=== PATIENT | male | born 1965 ===

== ENCOUNTER 2021-11-14 17:12 | Inpatient (IN) | payer MEDICAID ==
[2021-11-14] MEDS ORDERED: MAGNESIUM HYDROXIDE 2,400 MG/10 ML CUP PO PRN (18:32)
[2021-11-14] MEDS ORDERED: OLANZapine 10 MG VIAL IM PRN (18:44)
[2021-11-14] MEDS ORDERED: hydrOXYzine HCL 50 MG/ML 1 ML VIAL IM PRN (18:44)
[2021-11-14] MEDS ORDERED: OLANZapine 5 MG TAB PO PRN (18:44)
[2021-11-14] MEDS ORDERED: QUEtiapine 400 MG TAB PO SCH (21:00)
[2021-11-14] MEDS ORDERED: traZODone HCL 50 MG TAB PO SCH (21:00)
[2021-11-14] MEDS: ACETAMINOPHEN TAB 325 MG TAB PO PRN (21:17)
[2021-11-14] MEDS: busPIRone HCl 5 MG TAB PO SCH (21:52)
--- NOTE | 2021-11-15 04:24 | P.MDCNMH ---
History of Present Illness H&P Date: 11/14/21 Chief Complaint: Medical evaluation 56-year-old male with CK D, GERD, hypertension Patient comes in with depressed emotions and suicidal ideation. He feels down especially with the news of his cousin who recently shocked himself patient started getting negative thoughts. He otherwise denies any medical concerns at this time denies any fevers chills chest pain trouble breathing coughing upper respiratory infection symptoms denies nausea vomiting abdominal pain changes in bowels urinary habits denies any GI bleeding denies any focal neuro deficits Patient admits to tobacco smoking, admits to cocaine abuse last time he uses it was 3-4 days ago. Denies any alcohol Review of Systems Pertinent positives as noted in HPI. All other systems were reviewed and are negative Past Medical History Past Medical History: Hypertension History of Any Multi-Drug Resistant Organisms: None Reported Past Surgical History: No Surgical Hx Reported Past Anesthesia/Blood Transfusion Reactions: No Reported Reaction Past Psychological History: No Psychological Hx Reported Smoking Status: Current every day smoker Past Alcohol Use History: None Reported Past Drug Use History: None Reported - Past Family History Family Family Medical History: Coronary Artery Disease (CAD) Additional Family Medical History / Comment(s): Suicide Medications and Allergies Allergies Allergy/AdvReac Type Severity Reaction Status Date / Time No Known Allergies Allergy Verified 11/14/21 18:29 Physical Exam Vitals: Vital Signs Temp Pulse Resp BP Pulse Ox 11/14/21 22:17 97.9 F 66 18 109/66 97 Intake and Output 11/14/21 11/14/21 11/15/21 14:59 22:59 06:59 Other: Weight 79 kg Constitutional: No acute distress, conversant, depressed affect Eyes: Anicteric sclerae, moist conjunctiva, Pupils equal round reactive to light ENMT: NC/AT Oropharynx clear, no erythema, or exudates Neck: Supple, FROM, no masses, or JVD No carotid bruits No thyromegaly Lungs: Clear to auscultation Clear to percussion Normal respiratory effort, no accessory muscle use Cardiovascular: Heart regular in rate and rhythm, No murmurs, gallops, or rubs No peripheral edema Abdominal: Soft Nontender, no guarding, rebound or rigidity Abdomen moving with respiration Normoactive bowel sounds No hepatomegaly, No splenomegaly No palpable mass No abdominal wall hernia noted Skin: Normal temperature, tone, texture, turgor No induration No subcutaneous nodules No rash, lesions No ulcers Extremities: No digital cyanosis No clubbing Pedal pulses intact and symmetrical Radial pulses intact and symmetrical No calf tenderness Psychiatric: Alert and oriented to person, place and time Neuro Muscles Strength 5/5 in all 4 extremities Sensation to light touch grossly present throughout Cranial nerves II-XII grossly intact No focal sensory deficits Lymphatics: no palpable cervical or supraclavicular , or inguinal lymph nodes Cranial Nerve Examination - Cranial Nerves Cranial Nerve II- Optic: Intact Cranial Nerve III- Oculomotor: Intact Cranial Nerve IV- Trochlear: Intact Cranial Nerve V- Trigeminal: Intact Cranial Nerve - Abducens: Intact Cranial Nerve VII- Facial: Intact Cranial Nerve VIII- Auditory: Intact Cranial Nerve IX- Glossopharyngeal: Intact Cranial Nerve X- Vagus: Intact Cranial Nerve XI- Accessory: Intact Cranial Nerve XII- Hypoglossal: Intact Assessment and Plan Assessment: Suicidal ideation and depression Bipolar disorder Anxiety Management per psych Chronic conditions CK D follow-up blood work, avoid nephrotoxic meds Hypertension, not currently on medications, blood pressure controlled GERD, continue with PPI Polysubstance abuse Patient counseled to quit tobacco smoking and cocaine abuse Follow-up labs DVT prophylaxis patient ambulatory Thank you for allowing us to participate in the care of this patient. We will follow peripherally. Do not hesitate to contact us with questions. Someone can be reached from the [facility] hospitalist group at all hours of the day at [phone].
[2021-11-15] MEDS: busPIRone HCl 5 MG TAB PO SCH (08:29)
[2021-11-15] MEDS: NICOTINE 14MG/24HR PATCH TRANSDERM SCH (08:29)
[2021-11-15] MEDS: PANTOPRAZOLE 40 MG TABLET PO SCH (08:29)
[2021-11-15] MEDS ORDERED: QUEtiapine 50 MG TAB PO SCH (09:00)
[2021-11-15 10:24] LABS: Basophils # (A) 0.1 k/uL (0-0.2); Basophils % (A) 1 %; Eosinophils # (A) 0.2 k/uL (0-0.7); Eosinophils % (A) 3 %; HGB 13.8 gm/dL (13.0-17.5); Lymphocytes # (A) 1.5 k/uL (1.0-4.8); Lymphocytes % (A) 24 %; MCH 30.2 pg (25.0-35.0); MCHC 32.8 g/dL (31.0-37.0); MCV 92.1 fL (80.0-100.0); Mean Platelet Volume 6.5; Monocytes # (A) 0.4 k/uL (0-1.0); Monocytes % (A) 7 %; Neutrophils # (A) 3.7 k/uL (1.3-7.7); Neutrophils % (A) 62 %; Platelet Count 330 k/uL (150-450); RBC 4.56 m/uL (4.30-5.90); RDW 13.6 % (11.5-15.5)
[2021-11-15 10:39] LABS: ALT 23 U/L (4-49); AST 25 U/L (17-59); African American GFR (CKD) 77 (>60 ml/min/1.73 sqM); Albumin 4.2 g/dL (3.5-5.0); Alkaline Phosphatase 69 U/L (38-126); Anion Gap 12 mmol/L; Bilirubin, Delta 0.1 mg/dL (0.0-0.2); Bilirubin,Unconjugated 0.1 mg/dL (0.0-1.1); Blood Urea Nitrogen 10 mg/dL (9-20); Calcium 9.6 mg/dL (8.4-10.2); Carbon Dioxide 23 mmol/L (22-30); Chloride 103 mmol/L (98-107); Glucose 100 mg/dL (74-99); Non-African American GFR(CKD) 67 (>60 ml/min/1.73 sqM); Potassium 4.5 mmol/L (3.5-5.1); Sodium 138 mmol/L (137-145); Total Bilirubin 0.2 mg/dL (0.2-1.3); Total Protein 6.7 g/dL (6.3-8.2)
[2021-11-15] MEDS: ACETAMINOPHEN TAB 325 MG TAB PO PRN ×2 (11:29→20:52)
[2021-11-15] MEDS: hydrOXYzine pamoate 25 MG CAP PO PRN (11:29)
[2021-11-15] MEDS: SERTRALINE 50 MG TAB PO SCH (11:29)
[2021-11-15] MEDS ORDERED: DICLOFENAC SODIUM GEL 100 GM TUBE TOPICAL PRN (11:30)
[2021-11-15] MEDS ORDERED: ALBUTEROL INHALER 60 PUFF/8 GM INHALER (MHU) INHALATION PRN (11:30)
[2021-11-15] MEDS ORDERED: PANTOPRAZOLE 40 MG TABLET PO SCH (11:45)
[2021-11-15] MEDS ORDERED: LORazepam 2 MG/ML INJ IM PRN (11:45)
[2021-11-15] MEDS ORDERED: haloperidoL 5 MG TAB PO PRN (11:45)
[2021-11-15] MEDS ORDERED: HALOPERIDOL LACTATE 5 MG/ML 1 ML VIAL IM PRN (11:45)
--- NOTE | 2021-11-15 11:46 | P.HP ---
Psychiatric H&P - . H&P Date: 11/15/21 History & Physical: Allergies Allergy/AdvReac Type Severity Reaction Status Date / Time No Known Allergies Allergy Verified 11/14/21 18:29 Vital Signs Temp 98.9 F 11/15/21 06:51 Pulse 65 11/15/21 06:51 Resp 18 11/15/21 06:51 BP 110/62 11/15/21 06:51 Pulse Ox 95 11/15/21 06:51 FiO2 Intake & Output 11/14/21 11/15/21 11/15/21 18:59 06:59 18:59 Weight 77.27 kg 79 kg Laboratory Last Values WBC 6.0 k/uL (3.8-10.6) 11/15/21 09:35 RBC 4.56 m/uL (4.30-5.90) 11/15/21 09:35 Hgb 13.8 gm/dL (13.0-17.5) 11/15/21 09:35 Hct 42.0 % (39.0-53.0) 11/15/21 09:35 MCV 92.1 fL (80.0-100.0) 11/15/21 09:35 MCH 30.2 pg (25.0-35.0) 11/15/21 09:35 MCHC 32.8 g/dL (31.0-37.0) 11/15/21 09:35 RDW 13.6 % (11.5-15.5) 11/15/21 09:35 Plt Count 330 k/uL (150-450) 11/15/21 09:35 MPV 6.5 11/15/21 09:35 Neutrophils % 62 % 11/15/21 09:35 Lymphocytes % 24 % 11/15/21 09:35 Monocytes % 7 % 11/15/21 09:35 Eosinophils % 3 % 11/15/21 09:35 Basophils % 1 % 11/15/21 09:35 Neutrophils # 3.7 k/uL (1.3-7.7) 11/15/21 09:35 Lymphocytes # 1.5 k/uL (1.0-4.8) 11/15/21 09:35 Monocytes # 0.4 k/uL (0-1.0) 11/15/21 09:35 Eosinophils # 0.2 k/uL (0-0.7) 11/15/21 09:35 Basophils # 0.1 k/uL (0-0.2) 11/15/21 09:35 Sodium 138 mmol/L (137-145) 11/15/21 09:35 Potassium 4.5 mmol/L (3.5-5.1) 11/15/21 09:35 Chloride 103 mmol/L (98-107) 11/15/21 09:35 Carbon Dioxide 23 mmol/L (22-30) 11/15/21 09:35 Anion Gap 12 mmol/L 11/15/21 09:35 BUN 10 mg/dL (9-20) 11/15/21 09:35 Creatinine 1.23 mg/dL (0.66-1.25) 11/15/21 09:35 Est GFR (CKD-EPI)AfAm 77 (>60 ml/min/1.73 sqM) 11/15/21 09:35 Est GFR (CKD-EPI)NonAf 67 (>60 ml/min/1.73 sqM) 11/15/21 09:35 Glucose 100 mg/dL (74-99) H 11/15/21 09:35 Calcium 9.6 mg/dL (8.4-10.2) 11/15/21 09:35 Total Bilirubin 0.2 mg/dL (0.2-1.3) 11/15/21 09:35 Conjugated Bilirubin 0.0 mg/dL (0.0-0.3) 11/15/21 09:35 Unconjugated Bilirubin 0.1 mg/dL (0.0-1.1) 11/15/21 09:35 Delta Bilirubin 0.1 mg/dL (0.0-0.2) 11/15/21 09:35 AST 25 U/L (17-59) 11/15/21 09:35 ALT 23 U/L (4-49) 11/15/21 09:35 Alkaline Phosphatase 69 U/L (38-126) 11/15/21 09:35 Total Protein 6.7 g/dL (6.3-8.2) 11/15/21 09:35 Albumin 4.2 g/dL (3.5-5.0) 11/15/21 09:35 TSH 0.483 mIU/L (0.465-4.680) 11/15/21 09:35 11/15/21 11:37 IDENTIFYING DATA: Patient is a 56-year-old -Cypriot male who is currently homeless living in different shelters or staying with friends, has 1, currently unemployed HPI: Patient presented to the hospital as a transfer from [facility]. According to EPS report patient was suicidal and having auditory hallucinations commanding him to harm himself. Patient apparently had endorsed wanting to use a gun to harm himself. EPS reported also that patient had been off his medications for about 3 weeks. Apparently patient's urine drug screen was positive for cocaine and THC. Patient was seen today and agreeable to speak to telegraphic typewriter repairer in the office. Patient appeared to have poor eye contact and appeared be disheveled in appearance. Soft tone of voice. He states that his daughter preston pped him off at the other hospital and states that he was having suicidal thoughts. He claims that his cousin recently killed herself which has been causing stress for him. He claims that he is dealing with other multiple stressors in his life including not getting paid for a job and really more financial issues. He claims that he is also been dealing with family and relationship issues which she was fairly vague about. He claims a feeling depressed for about 2 weeks now. He states that he is also having high levels of anxiety. He claims that his sleep and appetite are poor. States that he does have nightmares every night. He claims that he ran out of his medications. He does claim that he has been using cocaine approximately $100 for the past month and also smokes marijuana almost daily and also cigarettes as well. Denies any other recreational drugs. He claims that he is still having suicidal thoughts however no intent or plan. He claims that he is also still hearing voices at times during the day which started on Thursday. Patient denies any homicidal ideations intent or plan. At this time patient denies any visual hallucinations. Patient denies any flight of ideas racing thoughts and increased in goal directed behavior. PAST PSYCHIATRIC HISTORY: Patient states that he has a history of PTSD and "bipolar disorder". He was previously on Seroquel, BuSpar in the past. He claims that he has had multiple psychiatric hospitalizations in the past, last admission was at [facility] in March. He claims that he does follow up with a psychiatrist at [facility] in [place]. He claims that he once overdosed in 2008. PMH: Hypertension ALLERGIES: as per EMR CHEMICAL DEPENDENCY HISTORY: as per HPI FAMILY PSYCHIATRIC/SUBSTANCE USE HISTORY: denies SOCIAL HISTORY: Patient was born and raised in [place]. He states that he completed high school. 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 He is currently unemployed. He claims that he did go to jail several years ago for drug-related charges. He claims that he is now homeless and lives in different shelters or staying with different friends. He claims that he has 1 daughter. MENTAL STATUS EXAM: General Appearance: Patient appears to be older than stated age is alert, poor eye contact, vague. Patient appears to have poor hygiene and grooming. Behavior: Patient is seated without any agitated behavior. Vague. Speech: Patient's speech is fluent and nonpressured. Mumbling, soft tone. Mood/Affect: Patient reports their mood is depressed and anxious, affect is congruent and constricted. Suicidality/Homicidality: Patient denies having any homicidal ideation intent or plan. Admits to current suicidal thoughts, no intent or plan. Perceptions: Patient denies any visual hallucinations and admits to auditory hallucinations since Thursday. Though content/process: There is no evidence of any delusional thought content and thought process is linear and goal-directed. Rambles at times. Memory and concentration: AOX3, grossly intact for the purposes of this session. Can spell "WORLD" backwards Judgment and insight: poor STRENGTHS/WEAKNESSES: strength is that patient is resilient. Weakness is that patient has poor judgment and is impulsive INTELLECT: average IMPRESSIONS: Major depressive disorder, with psychotic features PTSD Cocaine use disorder Cannabis use disorder mild Nicotine dependence PLAN: -Patient is admitted under voluntary status to [facility]HU for stabilization of psychiatric symptoms and safety. Patient has signed adult voluntary form and medication consent and is placed in patient's chart. -Medications : Will start patient on Zyprexa 7.5 mg daily at bedtime for mood stabilization/psychosis, this can be increased over the weekend if needed. Zoloft 50 mg daily for mood/anxiety. BuSpar 15 mg daily for anxiety. Trazodone daily at bedtime when necessary for sleep. -Ativan and Haldol PRN for agitation/aggression -Patient was counselled on substance abuse and desired to cut back on use -Patient was informed of the risks, benefits and side effects of the medication and patient verbally consented to taking the medications. Patient signed med consent form and was placed in chart. -Internal Medicine consult to perform medical evaluation and physical. -NRT - nicotine patch -SW on board for discharge planning. Encourage patient to participate in groups to work on coping skills. will attempt to offer patient rehab.
[2021-11-15] MEDS: FOLIC ACID 1 MG TAB PO SCH (11:49)
[2021-11-15] MEDS: lisinopriL 20 MG TAB PO SCH (11:49)
[2021-11-15 15:13] LABS: Chol/HDL Ratio 3.08 Ratio; LDL Cholesterol,Calculated 63.4 mg/dL (0.0-131.0)
[2021-11-15] MEDS: PRAZOSIN 1 MG CAP PO SCH (20:52)
[2021-11-15] MEDS ORDERED: OLANZapine 2.5 MG TAB PO SCH (21:00)
[2021-11-16] MEDS: lisinopriL 20 MG TAB PO SCH (08:09)
[2021-11-16] MEDS: NICOTINE 14MG/24HR PATCH TRANSDERM SCH (08:09)
[2021-11-16] MEDS: SERTRALINE 50 MG TAB PO SCH (08:09)
[2021-11-16] MEDS: FOLIC ACID 1 MG TAB PO SCH (08:09)
[2021-11-16] MEDS: busPIRone HCl 5 MG TAB PO SCH (08:09)
[2021-11-16] MEDS: PANTOPRAZOLE 40 MG TABLET PO SCH (08:09)
[2021-11-16] MEDS: ACETAMINOPHEN TAB 325 MG TAB PO PRN ×2 (08:10→12:47)
[2021-11-16] MEDS: hydrOXYzine pamoate 25 MG CAP PO PRN ×2 (12:46→20:09)
[2021-11-16] MEDS: IBUPROFEN 200 MG TAB PO PRN (17:46)
[2021-11-16] MEDS: PRAZOSIN 1 MG CAP PO SCH (20:08)
[2021-11-16] MEDS: OLANZapine 7.5 MG TAB PO SCH (20:08)
[2021-11-17] MEDS: PANTOPRAZOLE 40 MG TABLET PO SCH (08:36)
[2021-11-17] MEDS: SERTRALINE 50 MG TAB PO SCH (08:36)
[2021-11-17] MEDS: lisinopriL 20 MG TAB PO SCH (08:36)
[2021-11-17] MEDS: FOLIC ACID 1 MG TAB PO SCH (08:36)
[2021-11-17] MEDS: busPIRone HCl 5 MG TAB PO SCH (08:36)
[2021-11-17] MEDS: MAG HYDROX/AL HYDROX/SIMETH 30 ML CUP PO PRN ×2 (08:38→16:54)
[2021-11-17] MEDS: ACETAMINOPHEN TAB 325 MG TAB PO PRN (08:38)
--- NOTE | 2021-11-17 12:02 | P.PN ---
Subjective Progress Note Date: 11/16/21 Principal diagnosis: Major depressive disorder, with psychotic features PTSD Cocaine use disorder Cannabis use disorder mild Nicotine dependence -Patient is admitted under voluntary status to MHU for stabilization of psychiatric symptoms and safety. Patient has signed adult voluntary form and medication consent and is placed in patient's chart. -Medications : Started patient on Zyprexa 7.5 mg daily at bedtime for mood stabilization/psychosis, this can be increased over the weekend if needed. Zoloft 50 mg daily for mood/anxiety. BuSpar 15 mg daily for anxiety. Trazodone daily at bedtime when necessary for sleep. -Ativan and Haldol PRN for agitation/aggression -Subjective: He is tolerating medications well but was on 600mg of seroquel at home and did not sleep well on the zyprexa 7.5 Objective: He does look sleepy, is vague, denies suicidal urges, is cooperative, poor eye contact, no clear psychotic responses. Assessment: needs and wants an increase in meds so will increase zyprexa to 15 mg./plan Objective - Vital Signs Vital signs: Vital Signs Temp 97.8 F 11/16/21 06:05 Pulse 69 11/16/21 08:12 Resp 16 11/16/21 06:05 BP 119/78 11/16/21 08:12 Pulse Ox 97 11/16/21 06:05 FiO2 - Labs CBC & Chem 7: 11/15/21 09:35 11/15/21 09:35 Labs: Abnormal Lab Results - Last 24 Hours (Table) 11/15/21 11/15/21 Range/Units 09:35 09:35 Hemoglobin A1c 6.1 H (0.0-6.0) % Triglycerides 166.00 H (0.00-149.00) mg/dL
--- NOTE | 2021-11-17 12:06 | P.PN ---
Subjective Progress Note Date: 11/17/21 Principal diagnosis: Major depressive disorder, with psychotic features PTSD Cocaine use disorder Cannabis use disorder mild Nicotine dependence -Patient is admitted under voluntary status to MHU for stabilization of psychiatric symptoms and safety. -Medications : We increased the Zyprexa to 15 last night and he says he slept better. Zoloft 50 mg daily for mood/anxiety. BuSpar 15 mg daily for anxiety. He says he was taking it twice a day but there was some concern about his kidneys and he can't remember 2 in the evening anyhow. Trazodone daily at bedtime when necessary for sleep. He says he slept well last night. -Ativan and Haldol PRN for agitation/aggression -Subjective: He is tolerating medications well but was on 600mg of seroquel at home and did not sleep well on the zyprexa 7.5 Objective: He does look more alert after a good night sleep, is vague, denies suicidal urges, is cooperative but when I asked him to come and talk to me he had to do to other chores first before he could come, poor improved. Assessment: Increase in Zyprexa helped but he said that he still has breakthrough of nightmares and that when he was at home he took 3 mg of prazosin and wanted to know if that could be increased Plan increase prazosin to 3 mg continue other medications Objective - Vital Signs Vital signs: Vital Signs Temp 97.8 F 11/16/21 06:05 Pulse 69 11/16/21 08:12 Resp 16 11/16/21 06:05 BP 119/78 11/16/21 08:12 Pulse Ox 97 11/16/21 06:05 FiO2 - Labs CBC & Chem 7: 11/15/21 09:35 11/15/21 09:35
[2021-11-17] MEDS: hydrOXYzine pamoate 25 MG CAP PO PRN (16:49)
[2021-11-17] MEDS: IBUPROFEN 200 MG TAB PO PRN (16:51)
[2021-11-17] MEDS: PRAZOSIN 1 MG CAP PO SCH (20:36)
[2021-11-17] MEDS: OLANZapine 7.5 MG TAB PO SCH (20:36)
[2021-11-18] MEDS: IBUPROFEN 200 MG TAB PO PRN ×3 (07:45→20:33)
[2021-11-18] MEDS: busPIRone HCl 5 MG TAB PO SCH (07:46)
[2021-11-18] MEDS: lisinopriL 20 MG TAB PO SCH (07:46)
[2021-11-18] MEDS: FOLIC ACID 1 MG TAB PO SCH (07:46)
[2021-11-18] MEDS: PANTOPRAZOLE 40 MG TABLET PO SCH ×2 (07:46→17:43)
[2021-11-18] MEDS: SERTRALINE 50 MG TAB PO SCH (07:47)
[2021-11-18] MEDS: MULTIVITAMINS, THERA 1 EACH TAB PO SCH (09:28)
[2021-11-18] MEDS: CALCIUM CARBONATE 500 MG CHEWABLE PO PRN ×2 (09:40→17:43)
[2021-11-18] MEDS ORDERED: SERTRALINE 50 MG TAB PO STA (10:24)
--- NOTE | 2021-11-18 10:31 | P.PN ---
Progress Note - Text Progress Note Date: 11/18/21 Interval History: Patient was seen wandering the hallways and was directable and agreeable to efraín marlow with technical document writer in the office. Patient was seen in group earlier today. He states that he is still feeling fairly depressed and "very anxious". He claims he has been feeling this way throughout the weekend and states that the Zyprexa has not been helping him enough. He claims that he is still hearing voices as well telling him to harm himself. He was complaining of some poor sleep and states that he wants to take the trazodone tonight. He states that he is also having acid reflux and is agreeable to have his Protonix increased. He claims that he is going to some groups. At this time patient denies any suicidal or homical ideations, intent or plan. Patient denies any visual hallucinations and denies any paranoia or delusions. Patient denies any side effects from the medications and has been compliant with meds. Mental Status Exam: General Appearance: Patient appears to be older than stated age is alert, fair eye contact, vague. Patient appears to have poor hygiene and grooming. Behavior: Patient is seated without any agitated behavior. Vague. Speech: Patient's speech is fluent and nonpressured. soft tone. Mood/Affect: Patient reports their mood is depressed and anxious, affect is congruent and constricted. Suicidality/Homicidality: Patient denies having any homicidal ideation intent or plan. denies any suicidal thoughts, no intent or plan. Perceptions: Patient denies any visual hallucinations and admits to auditory hallucinations Though content/process: There is no evidence of any delusional thought content and thought process is linear and goal-directed. Rambles at times. focused on his meds and sx. Memory and concentration: AOX3, grossly intact for the purposes of this session Judgment and insight: poor, improving midlly IMPRESSIONS: Major depressive disorder, with psychotic features PTSD Cocaine use disorder Cannabis use disorder mild Nicotine dependence Plan: -Patient continues to meet criteria for inpatient psychiatric admission for symptom stabilization and safety. Patient has signed adult voluntary form and medication consent and was placed in patient's chart. -Medications: increase Zyprexa 15 mg daily at bedtime + 5 daily for mood stab ilization/psychosis. increase Zoloft 100 mg daily for mood/anxiety. BuSpar 15 mg daily for anxiety. Trazodone daily at bedtime when necessary for sleep. -When necessary Ativan and Haldol for agitation/aggression. -NRT - nicotine patch -SW on board for discharge planning. Encouraged the patient to participate in milieu. will attempt to offer patient rehab.
[2021-11-18] MEDS: OLANZapine 5 MG TAB PO SCH (10:43)
[2021-11-18] MEDS: hydrOXYzine pamoate 25 MG CAP PO PRN (10:45)
[2021-11-18] MEDS: ACETAMINOPHEN TAB 325 MG TAB PO PRN (17:44)
[2021-11-18] MEDS: traZODone HCL 100 MG TAB PO PRN (20:33)
[2021-11-18] MEDS: OLANZapine 7.5 MG TAB PO SCH (20:33)
[2021-11-18] MEDS: PRAZOSIN 1 MG CAP PO SCH (20:33)
[2021-11-19] MEDS: MULTIVITAMINS, THERA 1 EACH TAB PO SCH (08:36)
[2021-11-19] MEDS: OLANZapine 5 MG TAB PO SCH (08:36)
[2021-11-19] MEDS: lisinopriL 20 MG TAB PO SCH (08:36)
[2021-11-19] MEDS: busPIRone HCl 5 MG TAB PO SCH (08:36)
[2021-11-19] MEDS: FOLIC ACID 1 MG TAB PO SCH (08:36)
[2021-11-19] MEDS: PANTOPRAZOLE 40 MG TABLET PO SCH ×2 (08:40→17:31)
[2021-11-19] MEDS: IBUPROFEN 200 MG TAB PO PRN ×2 (08:40→17:33)
[2021-11-19] MEDS ORDERED: SERTRALINE 100 MG TAB PO SCH (09:00)
[2021-11-19] MEDS: hydrOXYzine pamoate 25 MG CAP PO PRN ×2 (10:31→18:58)
--- NOTE | 2021-11-19 11:08 | P.PN ---
Progress Note - Text Progress Note Date: 11/19/21 Interval History: Patient was seen wandering the hallways and was directable and agreeable to efraín marlow with short story writer in the office. Patient claims that he is still feeling fairly anxious during the day and states that he had a "panic attack" earlier today. He states that he is still waking up about 4:00 in the morning and not getting a full night's rest of sleep. He states that he still feeling depressed however claims history of being admitted it as improved moderately. He states that his appetite was "not good" earlier on however had breakfast and tolerating it well this morning. He states that he is trying to go to some groups and participate. He states that he is feeling too tired yesterday and this morning. He continues to state that he does hear voices that have "not changed" and are still negative towards him. At this time patient denies any suicidal or homical ideations, intent or plan. Patient denies any visual hallucinations and denies any paranoia or delusions. Patient denies any side effects from the medications and has been compliant with meds. Mental Status Exam: General Appearance: Patient appears to be older than stated age is alert, fair eye contact, vague. Patient appears to have improving hygiene and grooming. Behavior: Patient is seated without any agitated behavior. Vague. Speech: Patient's speech is fluent and nonpressured. soft tone. Mood/Affect: Patient reports their mood is depressed and anxious, improving mildly, affect is congruent and constricted. Suicidality/Homicidality: Patient denies having any homicidal ideation intent or plan. denies any suicidal thoughts, no intent or plan. Perceptions: Patient denies any visual hallucinations and admits to auditory hallucinations Though content/process: There is no evidence of any delusional thought content and thought process is linear and goal-directed. Rambles at times. focused on h is meds and sx. Memory and concentration: AOX3, grossly intact for the purposes of this session Judgment and insight: poor, improving midlly IMPRESSIONS: Major depressive disorder, with psychotic features PTSD Cocaine use disorder Cannabis use disorder mild Nicotine dependence Plan: -Patient continues to meet criteria for inpatient psychiatric admission for symptom stabilization and safety. Patient has signed adult voluntary form and medication consent and was placed in patient's chart. -Medications: increase Zyprexa 20 mg daily at bedtime for mood stabilization/psychosis. increase Zoloft 150 mg daily for mood/anxiety. increase BuSpar 20 mg daily for anxiety. Trazodone daily at bedtime when necessary for sleep. -When necessary Ativan and Haldol for agitation/aggression. -NRT - nicotine patch -SW on board for discharge planning. Encouraged the patient to participate in milieu. will attempt to offer patient rehab.
[2021-11-19] MEDS ORDERED: busPIRone HCl 5 MG TAB PO ONE (11:15)
[2021-11-19] MEDS ORDERED: busPIRone HCl 10 MG TAB PO SCH (11:15)
[2021-11-19] MEDS: CALCIUM CARBONATE 500 MG CHEWABLE PO PRN ×2 (11:57→20:56)
[2021-11-19] MEDS: PRAZOSIN 1 MG CAP PO SCH (20:34)
[2021-11-19] MEDS: OLANZapine 10 MG TAB PO SCH (20:34)
[2021-11-19] MEDS: busPIRone HCl 10 MG TAB PO SCH (20:34)
[2021-11-19] MEDS: traZODone HCL 100 MG TAB PO PRN (20:36)
[2021-11-19 20:38] VITALS: RESP 16
[2021-11-20] MEDS: IBUPROFEN 200 MG TAB PO PRN ×2 (08:54→16:57)
[2021-11-20] MEDS: MULTIVITAMINS, THERA 1 EACH TAB PO SCH (08:55)
[2021-11-20] MEDS: SERTRALINE 50 MG TAB PO SCH (08:55)
[2021-11-20] MEDS: busPIRone HCl 10 MG TAB PO SCH ×2 (08:55→20:15)
[2021-11-20] MEDS: PANTOPRAZOLE 40 MG TABLET PO SCH ×2 (08:55→16:58)
[2021-11-20] MEDS: FOLIC ACID 1 MG TAB PO SCH (08:55)
[2021-11-20] MEDS: lisinopriL 20 MG TAB PO SCH (08:55)
[2021-11-20 08:58] VITALS: BP 114/90; PULSE 75; TEMP 98
[2021-11-20] MEDS: LORazepam 1 MG TAB PO PRN ×2 (10:58→19:12)
[2021-11-20] MEDS: CALCIUM CARBONATE 500 MG CHEWABLE PO PRN ×2 (13:27→16:58)
--- NOTE | 2021-11-20 13:37 | P.PN ---
Progress Note - Text Progress Note Date: 11/20/21 Interval History: Patient was seen wandering the hallways and was directable and agreeable to efraín marlow with screen writer in the office. Patient states that he has been going to groups. He states that he is feeling a bit better continues feeling less anxious continues to endorse some mild depression. He states that the voices have been getting better since being on the unit. He claims that they appear to be fairly chronic to him and are less negative. He states that he is not having any panic attacks at this time. He was very focused on discharge likely tomorrow and wanted to go stay [facility] He states that he is able to sleep a bit better last night however was requesting melatonin has had trouble initiating sleep. He is not endorsing any delusions or paranoia. At this time patient denies any suicidal or homical ideations, intent or plan. Patient denies any visual hallucinations. Patient denies any side effects from the medications and has been compliant with meds. Mental Status Exam: General Appearance: Patient appears to be older than stated age is alert, fair eye contact, vague. Patient appears to have improving hygiene and grooming. Behavior: Patient is seated without any agitated behavior. Improving Speech: Patient's speech is fluent and nonpressured. soft tone, improving Mood/Affect: Patient reports their mood is depressed, improving mildly, affect is congruent Suicidality/Homicidality: Patient denies having any homicidal ideation intent or plan. Denies any suicidal thoughts, no intent or plan. Perceptions: Patient denies any visual hallucinations and admits to auditory hallucinations Though content/process: There is no evidence of any delusional thought content and thought process is linear and goal-directed. focused on discharge tomorrow. Memory and concentration: AOX3, grossly intact for the purposes of this session Judgment and insight: improving midlly IMPRESSIONS: Major depressive disorder, with psychotic features PTSD Cocaine use disorder Cannabis use disorder mild Nicotine dependence Plan: -Patient continues to meet criteria for inpatient psychiatric admission for symptom stabilization and safety. Patient has signed adult voluntary form and medication consent and was placed in patient's chart. -Medications: Zyprexa 20 mg daily at bedtime for mood stabilization/psychosis. Zoloft 150 mg daily for mood/anxiety. BuSpar 20 mg daily for anxiety. Trazodone daily at bedtime when necessary for sleep. I added melatonin scheduled for sleep. -When necessary Ativan and Haldol for agitation/aggression. -NRT - nicotine patch -SW on board for discharge planning. Encouraged the patient to participate in milieu. does not want to go to rehab. likely discharge tomorrow to [facility].
[2021-11-20] MEDS: ACETAMINOPHEN TAB 325 MG TAB PO PRN (19:12)
[2021-11-20] MEDS: OLANZapine 10 MG TAB PO SCH (20:14)
[2021-11-20] MEDS: PRAZOSIN 1 MG CAP PO SCH (20:15)
[2021-11-20] MEDS: traZODone HCL 100 MG TAB PO PRN (20:16)
[2021-11-20] MEDS ORDERED: MELATONIN 5 MG TABLET PO SCH (21:00)
[2021-11-21] MEDS: PANTOPRAZOLE 40 MG TABLET PO SCH (07:53)
[2021-11-21] MEDS: busPIRone HCl 10 MG TAB PO SCH (07:54)
[2021-11-21] MEDS: MULTIVITAMINS, THERA 1 EACH TAB PO SCH (07:54)
[2021-11-21] MEDS: SERTRALINE 50 MG TAB PO SCH (07:54)
[2021-11-21] MEDS: lisinopriL 20 MG TAB PO SCH (07:54)
[2021-11-21] MEDS: FOLIC ACID 1 MG TAB PO SCH (07:54)
[2021-11-21] MEDS: CALCIUM CARBONATE 500 MG CHEWABLE PO PRN (08:18)
--- NOTE | 2021-11-21 09:46 | P.DS ---
Providers Date of admission: 11/14/21 21:03 Expected date of discharge: 11/21/21 Attending physician: Kanu Patino MD Consults: 11/14/21 18:32 Consult Physician Routine Consulting Provider: [facility] Consult Reason/Comments: Medical H&P Do you want consulting provider notified?: Yes Primary care physician: Stated None - Discharge Diagnosis(es) (1) Major depressive disorder with psychotic features Current Visit: Yes Status: Acute Priority: High (2) PTSD (post-traumatic stress disorder) Current Visit: Yes Status: Acute Priority: Medium (3) Cocaine use disorder Current Visit: Yes Status: Acute Priority: Medium (4) Cannabis use disorder, mild, abuse Current Visit: Yes Status: Acute Priority: Medium (5) Nicotine dependence Current Visit: Yes Status: Acute Priority: Low Hospital Course: Admission HPI: Admission note was completed by web content writer "Patient is a 56-year-old - [place] male who is currently homeless living in different shelters or staying with friends, has 1, currently unemployed. Patient presented to the hospital as a transfer from [facility]. According to EPS report patient was suicidal and having auditory hallucinations commanding him to harm himself. Patient apparently had endorsed wanting to use a gun to harm himself. EPS reported also that patient had been off his medications for about 3 weeks. Apparently patient's urine drug screen was positive for cocaine and THC. Patient was seen today and agreeable to speak to web content writer in the office. Patient appeared to have poor eye contact and appeared be disheveled in appearance. Soft tone of voice. He states that his daughter dropped him off at the other hospital and states that he was having suicidal thoughts. He claims that his cousin recently killed herself which has been causing stress for him. He claims that he is dealing with other multiple stressors in his life including not getting paid for a job and really more financial issues. He claims that he is also been dealing with family and relationship issues which she was fairly vague about. He claims a feeling depressed for about 2 weeks now. He states that he is also having high levels of anxiety. He claims that his sleep and appetite are poor. States that he does have nightmares every night. He claims that he ran out of his medications. He does claim that he has been using cocaine approximately $100 for the past month and also smokes marijuana almost daily and also cigarettes as well. Denies any other recreational drugs. He claims that he is still having suicidal thoughts however no intent or plan. He claims that he is also still hearing voices at times during the day which started on Thursday. Patient denies any homicidal ideations intent or plan. At this time patient denies any visual hallucinations. Patient denies any flight of ideas racing thoughts and increased in goal directed behavior." Hospital course: Upon admission to the unit patient was directable and agreeable to commence treatment and signed adult voluntary form. Patient got along well with other patients on the unit and followed unit protocol. Patient was compliant with the medications and denied any side effects throughout hospital course. Patient was started on Zyprexa 20 mg daily at bedtime for mood stabilization/psychosis, Zoloft 150 mg daily for mood/anxiety, BuSpar 20 mg twice a day for anxiety, trazodone 100 mg daily at bedtime when necessary for sleep, prazosin 3 mg daily at bedtime for nightmares, melatonin 5 mg scheduled for sleep. Patient spoke of his stressors and engaged in therapy both group and individual. Patient was also seen by medical team for history and physical exam. Throughout the course of the hospitalization patient gradually improved with regards to mood, anxiety, psychosis, sleep and returned back to their baseline level of functioning. On the day of discharge patient denied any suicidal or homicidal ideations intent or plan denied any auditory or visual hallucinations. Patient endorsed wanting to live for his health and family and to get a new job. The patient denied any access to guns or weapons. Patient denied any paranoia and did not endorse any delusions. Patient does have a significant history of substance abuse and was counseled on abstaining from all substances including alcohol and marijuana. Patient was offered however declined inpatient substance-abuse rehab. Patient was also counseled on the medications and need for regular compliance and was encouraged to follow-up with their outpatient appointment for mental health and also for primary care. Mental status exam: General Appearance: Patient appears to be thin, stated age is alert, pleasant, and cooperative. Patient is in no acute distress and has improved hygiene and grooming Behavior: Patient is calmly seated without any agitated behavior. Speech: Patient's speech is fluent and nonpressured. Mood/Affect: Patient reports their mood is "good", affect is congruent Suicidality/Homicidality: Patient denies having any suicidal or homicidal ideation intent or plan. Perceptions: Patient denies any auditory or visual hallucinations. Though content/process: There is no evidence of any delusional thought content and thought process is linear and goal-directed. Memory and concentration: AOX3, grossly intact for the purposes of this session. Can spell "WORLD" backwards correctly. Judgment and insight: chronically poor, however has improved with guarded prognosis Impression: Major depressive disorder, with psychotic features PTSD Cocaine use disorder Cannabis use disorder mild Nicotine dependence Plan: -Continue with discharge today as patient has improved and stabilized psychiatrically and is not currently an imminent threat to himself and/or others. Patient will remain at chronically elevated risk for harm to self and/or others due to his impulsivity and polysubstance abuse. -Continue medications: continue with zyprexa 20 mg qhs mood stabilization/psychosis, zoloft 150 mg daily for anxiety/mood, buspar 20 mg bid for anxiety, prazosin 3 mg daily at bedtime for nightmares, trazodone 100 mg daily at bedtime when necessary for sleep, melatonin 5 mg daily at bedtime for sleep. -Patient was counseled on the need for medication compliance and appropriate follow-up at mental health and also primary care for medical issues. Patient verbalized understanding and agreed. -Social work to arrange for and conduct family meeting to ensure safety upon discharge and answer any questions/concerns. Social work also to arrange for patients follow up appointments with [facility] for psychiatric care along with follow up with primary care provider. -Patient counseled on abstaining from recreational drugs and marijuana and alcohol. Was informed/educated on the adverse effects on their physical and mental health. Patient verbally agreed and understood. Patient was offered substance abuse treatment however declined at this time. -Patient was instructed to return to the hospital or seek immediate medical care if their psychiatric or medical symptoms do worsen or reoccur. Allergies Allergy/AdvReac Type Severity Reaction Status Date / Time No Known Allergies Allergy Verified 11/14/21 18:29 Laboratory Results WBC 6.0 k/uL (3.8-10.6) 11/15/21 09:35 RBC 4.56 m/uL (4.30-5.90) 11/15/21 09:35 Hgb 13.8 gm/dL (13.0-17.5) 11/15/21 09:35 Hct 42.0 % (39.0-53.0) 11/15/21 09:35 MCV 92.1 fL (80.0-100.0) 11/15/21 09:35 MCH 30.2 pg (25.0-35.0) 11/15/21 09:35 MCHC 32.8 g/dL (31.0-37.0) 11/15/21 09:35 RDW 13.6 % (11.5-15.5) 11/15/21 09:35 Plt Count 330 k/uL (150-450) 11/15/21 09:35 MPV 6.5 11/15/21 09:35 Neutrophils % 62 % 11/15/21 09:35 Lymphocytes % 24 % 11/15/21 09:35 Monocytes % 7 % 11/15/21 09:35 Eosinophils % 3 % 11/15/21 09:35 Basophils % 1 % 11/15/21 09:35 Neutrophils # 3.7 k/uL (1.3-7.7) 11/15/21 09:35 Lymphocytes # 1.5 k/uL (1.0-4.8) 11/15/21 09:35 Monocytes # 0.4 k/uL (0-1.0) 11/15/21 09:35 Eosinophils # 0.2 k/uL (0-0.7) 11/15/21 09:35 Basophils # 0.1 k/uL (0-0.2) 11/15/21 09:35 Sodium 138 mmol/L (137-145) 11/15/21 09:35 Potassium 4.5 mmol/L (3.5-5.1) 11/15/21 09:35 Chloride 103 mmol/L (98-107) 11/15/21 09:35 Carbon Dioxide 23 mmol/L (22-30) 11/15/21 09:35 Anion Gap 12 mmol/L 11/15/21 09:35 BUN 10 mg/dL (9-20) 11/15/21 09:35 Creatinine 1.23 mg/dL (0.66-1.25) 11/15/21 09:35 Est GFR (CKD-EPI)AfAm 77 (>60 ml/min/1.73 sqM) 11/15/21 09:35 Est GFR (CKD-EPI)NonAf 67 (>60 ml/min/1.73 sqM) 11/15/21 09:35 Glucose 100 mg/dL (74-99) H 11/15/21 09:[address] Glu mg/dL 127 11/15/21 09:35 Hemoglobin A1c 6.1 % (0.0-6.0) H 11/15/21 09:35 Calcium 9.6 mg/dL (8.4-10.2) 11/15/21 09:35 Total Bilirubin 0.2 mg/dL (0.2-1.3) 11/15/21 09:35 Conjugated Bilirubin 0.0 mg/dL (0.0-0.3) 11/15/21 09:35 Unconjugated Bilirubin 0.1 mg/dL (0.0-1.1) 11/15/21 09:35 Delta Bilirubin 0.1 mg/dL (0.0-0.2) 11/15/21 09:35 AST 25 U/L (17-59) 11/15/21 09:35 ALT 23 U/L (4-49) 11/15/21 09:35 Alkaline Phosphatase 69 U/L (38-126) 11/15/21 09:35 Total Protein 6.7 g/dL (6.3-8.2) 11/15/21 09:35 Albumin 4.2 g/dL (3.5-5.0) 11/15/21 09:35 Triglycerides 166.00 mg/dL (0.00-149.00) H 11/15/21 09:35 Cholesterol 143.00 mg/dL (0.00-200.00) 11/15/21 09:35 LDL Cholesterol, Calc 63.4 mg/dL (0.0-131.0) 11/15/21 09:35 VLDL Cholesterol, Calc 33.20 mg/dL (5.00-40.00) 11/15/21 09:35 HDL Cholesterol 46.40 mg/dL (40.00-60.00) 11/15/21 09:35 Cholesterol/HDL Ratio 3.08 Ratio 11/15/21 09:35 TSH 0.483 mIU/L (0.465-4.680) 11/15/21 09:35 Vital Signs Temp 98.0 F 11/20/21 08:57 Pulse 75 11/20/21 08:57 Resp 16 11/20/21 08:57 BP 114/90 11/20/21 08:57 Pulse Ox 98 11/20/21 08:57 FiO2 Patient Condition at Discharge: Stable Plan - Discharge Summary Discharge Rx Participant: No New Discharge Prescriptions: New Melatonin 5 mg PO HS 30 Days tab Multivitamins, Thera [Multivitamin (formulary)] 1 each PO DAILY 30 Days tab Calcium Carbonate [Tums] 500 mg PO TID PRN 30 Days tab PRN Reason: Heartburn Albuterol Inhaler [Ventolin Hfa Inhaler] 2 puff INHALATION RT-Q6H PRN #1 each PRN Reason: Shortness Of Breath hydrOXYzine pamoate [Vistaril] 50 mg PO BID PRN #14 cap PRN Reason: Agitation Or Acute Anxiety OLANZapine [ZyPREXA] 20 mg PO HS 30 Days tab Ibuprofen [Advil] 400 mg PO Q6HR PRN 30 Days tab PRN Reason: Pain busPIRone HCl [Buspar] 20 mg PO BID 30 Days tab traZODone HCL [Desyrel] 100 mg PO HS PRN 30 Days tab PRN Reason: Insomnia Folic Acid 1 mg PO DAILY 30 Days tab Prazosin [Minipress] 3 mg PO HS 30 Days cap Pantoprazole [Protonix] 40 mg PO AC-BID 30 Days tab Sertraline [Zoloft] 150 mg PO DAILY 30 Days tab Continue lisinopriL [Prinivil] 20 mg PO DAILY 30 Days tab Discontinued Folic Acid 1 mg PO DAILY Diclofenac Sodium Gel [Voltaren Gel] 2 gm TOPICAL QID PRN PRN Reason: Pain Daily-Khalif 1 tab PO DAILY Albuterol Sulfate [Proair Hfa] 2 puff INHALATION RT-Q6H PRN PRN Reason: Shortness Of Breath Pantoprazole Sodium 40 mg PO DAILY cloNIDine HCL [Catapres] 0.1 mg PO BID Discharge Medication List Albuterol Inhaler [Ventolin Hfa Inhaler] 2 puff INHALATION RT-Q6H PRN #1 each 11/21/21 [Rx] Calcium Carbonate [Tums] 500 mg PO TID PRN 30 Days tab 11/21/21 [Rx] Folic Acid 1 mg PO DAILY 30 Days tab 11/21/21 [Rx] Ibuprofen [Advil] 400 mg PO Q6HR PRN 30 Days tab 11/21/21 [Rx] Melatonin 5 mg PO HS 30 Days tab 11/21/21 [Rx] Multivitamins, Thera [Multivitamin (formulary)] 1 each PO DAILY 30 Days tab 11/21/21 [Rx] OLANZapine [ZyPREXA] 20 mg PO HS 30 Days tab 11/21/21 [Rx] Pantoprazole [Protonix] 40 mg PO AC-BID 30 Days tab 11/21/21 [Rx] Prazosin [Minipress] 3 mg PO HS 30 Days cap 11/21/21 [Rx] Sertraline [Zoloft] 150 mg PO DAILY 30 Days tab 11/21/21 [Rx] busPIRone HCl [Buspar] 20 mg PO BID 30 Days tab 11/21/21 [Rx] hydrOXYzine pamoate [Vistaril] 50 mg PO BID PRN #14 cap 11/21/21 [Rx] lisinopriL [Prinivil] 20 mg PO DAILY 30 Days tab 11/21/21 [Rx] traZODone HCL [Desyrel] 100 mg PO HS PRN 30 Days tab 11/21/21 [Rx] Follow up Appointment(s)/Referral(s): [facility], Team [Other] - 11/25/21 1:30 pm (Dr Richard Virtual appointment ) Activity/Diet/Wound Care/Special Instructions: Avoid the use of street drugs and alcohol. Take all prescriptions as prescribed. When you are in need of refills on your medications, please contact your medical provider and/or outpatient psychiatrist to have this done. Please go to scheduled outpatient appointment for aftercare treatment. If symptoms return or become worse, call the crisis line at and/or go to the nearest emergency room for evaluation. Discharge Disposition: OTHER INSTITUTION NOT DEFINED
[2021-11-21] MEDS: LORazepam 1 MG TAB PO PRN (10:46)
== END 2021-11-21 15:22 | disposition other institution (70) | DRG 885 ==
LOC: 3MHU 21:03
PROVIDERS: ADMIT Psychiatry & Neurology Psychiatry; ATTEND Psychiatry & Neurology Psychiatry
DX: F32.3 Major depressive disorder, single episode, severe with psychotic features (principal); R45.851 Suicidal ideations; F17.210 Nicotine dependence, cigarettes, uncomplicated; K21.9 Gastro-esophageal reflux disease without esophagitis; F12.10 Cannabis abuse, uncomplicated; F14.10 Cocaine abuse, uncomplicated; F43.10 Post-traumatic stress disorder, unspecified; I10 Essential (primary) hypertension; Z79.899 Other long term (current) drug therapy; Z71.6 Tobacco abuse counseling; Z71.51 Drug abuse counseling and surveillance of drug abuser; Z56.0 Unemployment, unspecified; Z59.00 Homelessness unspecified
CPT/HCPCS: 80053; 80061; 82248; 83036; 84443; 85025